=== PATIENT | female | born 1960 | race Asian ===

== ENCOUNTER 2018-01-22 06:02 | Day surgery (SDC) | payer OTHER ==
[2018-01-22] MEDS ORDERED: MIDAZOLAM 1 MG/ML 2 ML INJ (08:20)
[2018-01-22] MEDS ORDERED: FENTAnyl 50 MCG/ML VIAL (08:20)
== END 2018-01-22 15:09 | disposition home or self-care (01) ==
LOC: GIL 06:02
DX: Z12.11 Encounter for screening for malignant neoplasm of colon (principal); K57.90 Diverticulosis of intestine, part unspecified, without perforation or abscess without bleeding; K64.4 Residual hemorrhoidal skin tags
CPT/HCPCS: 45378